=== PATIENT | male | born 1955 | race Caucasian/White ===

== ENCOUNTER → 2016-04-29 | Outpatient (CLI) | payer BC ==
[~2016-04-29] MED LIST: ALBUAER2; HYCUDL5; LRT5; PRED10TA
--- NOTE | 2016-04-29 10:20 | DIAGNOSTIC IMAGING REPORT ---
RIGHT HIP UNILATERAL 2 VIEWS CLINICAL HISTORY: M25.51 Right pain COMPARISON: None. DISCUSSION: Subtle deformity of the subcapital region of the right hip. This may indicate a healed subcapital fracture. Main osseous structures are unremarkable There is no evidence for soft tissue swelling. IMPRESSION: Potential healed and/or healing subcapital fracture right hip. MRI of the right hip is suggested if clinically indicated. Electronically signed by: Keyur Rod M.D. 04/29/2016 10:19 AM Dictated Date/Time: 04/29/2016 10:09 AM
== END | disposition home or self-care (01) ==
LOC: C.RADBC 09:38
PROVIDERS: ATTEND Family Medicine
DX: M25.551 Pain in right hip (principal)

== ENCOUNTER → 2016-04-30 | Outpatient (CLI) | payer BC ==
--- NOTE | 2016-04-30 21:11 | DIAGNOSTIC IMAGING REPORT ---
MRI OF THE RIGHT HIP WITHOUT IV CONTRAST CLINICAL HISTORY: Right hip pain. No history of trauma. COMPARISON STUDY: Radiographs of the right hip dated 04/29/2016. TECHNIQUE: MRI of the right hip is performed utilizing various T1 and T2-weighted sequences in the axial and sagittal planes. IV contrast was not administered for this examination. The examination is modestly degraded by motion artifact. FINDINGS: There is no MRI evidence of fracture or osteonecrosis involving the hips. No fracture or marrow edema is seen involving the imaged bony pelvis. There is no joint effusion. There is no greater trochanteric or iliopsoas bursitis. The origin of the hamstrings tendon is intact bilaterally. The surrounding musculature of the hips and upper thighs is normal in bulk and signal intensity. A 10 mm cyst is suggested in the greater trochanter of the left femur on axial T2 fat-sat image #12. This is located at the insertion of the gluteus minimus tendon. There is "pistol horse racing manager" type configuration seen involving the proximal femora. 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 The pelvic viscera is normal as imaged. There is no pelvic or inguinal lymphadenopathy. IMPRESSION: 1. There is no MRI evidence of fracture or osteonecrosis involving the hips/proximal femora. 2. There is "pistol horse racing manager" configuration of the proximal femora. 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 Clinical correlation will be required. 3. A 10 mm cyst is incidentally noted in the posterior greater trochanter of the left femur near the gluteus minimus insertion. The tendon appears intact. This is of indeterminant etiology and significance. Dictated: 04/30/2016 8:55 PM Transcribed: 04/30/2016 9:11 PM Violeta Electronically signed by: Fili Llanes M.D. 04/30/2016 9:34 PM Dictated Date/Time: 04/30/2016 8:55 PM
== END | disposition home or self-care (01) ==
LOC: C.MRI 19:26
PROVIDERS: ATTEND Physical Medicine & Rehabilitation Sports Medicine
DX: M25.551 Pain in right hip (principal); M85.48 Solitary bone cyst, other site

== ENCOUNTER → 2016-06-08 | Outpatient (CLI) | payer BC | END | disposition home or self-care (01) | LOC: C.RDSM 15:45 | PROVIDERS: ATTEND Physical Medicine & Rehabilitation Sports Medicine | DX: R10.30 Lower abdominal pain, unspecified (principal); M25.551 Pain in right hip ==

== ENCOUNTER → 2017-02-25 | Outpatient (CLI) | payer BC ==
--- NOTE | 2017-02-25 08:53 | DIAGNOSTIC IMAGING REPORT ---
CHEST 2 VIEWS ROUTINE HISTORY: 62 years-old Male I82.509 Chronic deep vein thrombosis of lower [id number] COMPARISON: Chest radiograph 03/23/2012 TECHNIQUE: PA and lateral views of the chest FINDINGS: Cardiomediastinal and hilar silhouettes are within normal limits. There is no pneumothorax, pleural effusion, focal airspace consolidation or overt pulmonary edema. Mild hyperinflation. The bones of the chest appear grossly intact. Multilevel endplate spurring of the spine. IVC filter is noted on the lateral projection. IMPRESSION: Mild hyperinflation without acute cardiopulmonary process. The above report was generated using voice recognition software. It may contain grammatical, syntax or spelling errors. Electronically signed by: Noah Silverio M.D. 02/25/2017 8:51 AM Dictated Date/Time: 02/25/2017 8:50 AM
[2017-02-25 10:42] LABS: BASO % 0.7 %; BASO ABS # 0.05 K/uL (0-0.2); COMPLETE YES; EOS % 2.7 %; HEMATOCRIT 44.2 % (42-52); IG% 0.3 %; LYMPH % 40.5 %; LYMPH ABS # 2.74 K/uL (1.2-3.4); MEAN CELL VOLUME 87.9 fL (80-100); MEAN CORPUSCULAR HEMOGLOBIN 29.8 pg (25-34); MEAN CORPUSCULAR HGB CONC 33.9 g/dl (32-36); MONO % 9.9 %; NEUT % 45.9 %; PLATELET COUNT 254 K/uL (130-400); RED BLOOD COUNT 5.03 M/uL (4.7-6.1); WHITE BLOOD COUNT 6.76 K/uL (4.8-10.8)
[2017-02-25 10:53] LABS: ALT/SGPT 43 U/L (12-78); AST/SGOT 25 U/L (15-37); BLOOD UREA NITROGEN 18 mg/dl (7-18); BUN/CREATININE RATIO 20.7 (10-20); CALCIUM 8.9 mg/dl (8.5-10.1); CARBON DIOXIDE 29 mmol/L (21-32); CHLORIDE 109 mmol/L (98-107); CREATININE 0.85 mg/dl (0.60-1.40); GLUCOSE 99 mg/dl (70-99); POTASSIUM 3.9 mmol/L (3.5-5.1); SODIUM 139 mmol/L (136-145); TRIGLYCERIDES 124 mg/dl (0-150); VERY LOW DENSITY LIPOPROT CALC 25 mg/dl
[2017-02-25 11:03] LABS: ALB/GLOB RATIO 1.2 (0.9-2); ALKALINE PHOSPHATASE 77 U/L (45-117); CHOLESTEROL 188 mg/dl (0-200); CHOLESTEROL/HDL RATIO 2.1; HDL CHOLESTEROL 88 mg/dl; LDL CHOLESTEROL CALCULATED 75 mg/dl
== END | disposition home or self-care (01) ==
LOC: C.RADBC 08:28
PROVIDERS: ATTEND Internal Medicine Pulmonary Disease
DX: J45.909 Unspecified asthma, uncomplicated (principal); I82.509 Chronic embolism and thrombosis of unspecified deep veins of unspecified lower extremity